=== PATIENT | male | born 1980 | race Caucasian/White ===

== ENCOUNTER 2018-09-12 19:23 | Emergency (ER) | payer BC, SELFPAY ==
[2018-09-12 19:25] VITALS: BP 149/91; PULSE 82; RESP 18; TEMP 36.8; O2SAT 97
[2018-09-12 19:30] VITALS: RESP 18
[2018-09-12 20:00] VITALS: BP 125/86; PULSE 85; RESP 18; O2SAT 96
[2018-09-12 20:08] LABS: Abs Immature Grans 0.04 k/cumm (0.0-0.09); Absolute Basophil Count 0.06 k/cumm (0.0-0.2); Absolute Eosinophil Count 0.04 k/cumm (0.0-0.7); Absolute Lymphocyte Count 1.59 k/cumm (1.2-3.4); Absolute Monocyte Count 0.64 k/cumm (0.11-0.7); Absolute Neutrophil Count 4.55 k/cumm (1.2-6.7); Basophils % 0.9; Eosinophils % 0.6; Immature Grans % 0.6; Mean Corp. HGB Concentration 34.8 g/dL (32.0-36.0); Mean Corpuscular Hemoglobin 32.1 pg (27.0-33.0); Mean Corpuscular Volume 92.2 fL (80-95); Mean Platelet Volume 11.3 fL (8.0-11.0); Monocytes % 9.2; Neutrophils % 65.7; Platelet Count 252 x1000/uL (130-400); RBC 4.99 m/cumm (4.50-6.00); RBC Distribution Width 12.1 % (11.8-14.1); White Blood Cell Count 6.92 k/cumm (4.4-10.8)
[2018-09-12 20:20] LABS: INR 1.1 (0.9-1.1); Prothrombin Time 10.5 sec (9.3-11.0)
[2018-09-12 20:28] LABS: ALT 25 U/L (12-78); AST 15 U/L (15-37); Albumin 3.8 g/dL (3.4-5.0); Alkaline Phosphatase 83 U/L (46-116); Anion Gap 11.1 mmol/L (3-11); BUN 15 mg/dL (7-18); Bilirubin, Total 0.3 mg/dL (0.2-1.0); CO2 23.9 mmol/L (21.0-32.0); CREATININE 0.97 mg/dL (0.70-1.30); Calcium 8.9 mg/dL (8.5-10.1); Chloride 102 mmol/L (98-107); Glucose 133 mg/dL (70-100); NT-proBNP 27 pg/mL; Potassium 3.5 mmol/L (3.5-5.1); Sodium 137 mmol/L (136-145); Total Protein 7.7 g/dL (6.4-8.2)
[2018-09-12 20:29] LABS: Troponin I < 0.02 ng/mL (0.00-0.06)
--- NOTE | 2018-09-12 20:50 | W.ED.GENAD ---
Discharge Plan Disposition Patient Disposition: HOME Condition: Stable Discharge Details Chief Complaint: Chest Pain Clinical Impression: Chest pain, SOB (shortness of breath) Primary Care Provider: Paulie Mcclain ED Provider: Darell Ac Home Meds and New Rx's Prescriptions: No Action No Known Home Meds RF: 0 Discharge Instructions Instructions: Chest Pain (ED), Dyspnea (ED) Additional Instructions: You will be contacted for your outpatient stress test. We have recommended to the stress testing facility that your test be performed on Saturday. Please follow-up promptly with your primary care provider at your scheduled appointment on Saturday. If you notice any worsening of your symptoms, or any new symptoms such as vomiting, diarrhea, fever, chills, shortness of breath, chest pain, numbness, weakness, or fainting , please return immediately to the emergency department for reevaluation. Please follow up with your primary care provider as soon as possible for reassessment and reevaluation. As always, it was a pleasure participating in your medical care today. Referrals: Paulie Mcclain [Primary Care Provider] - Medical Decision Making This is a pleasant 38-year-old male with a past medical history of epilepsy, for which she takes no medications, as well as a vague history of a potential reduced ejection fraction, and valvular disease for which he does not know the specifics, nor can we find any records at [facility]. These cardiac issues were years ago, and he has had no follow-up since then, nor any problems. Currently he presents today with atypical symptoms of chest heaviness diaphoresis, fatigue and shortness of breath that started today with a mild associated nonproductive cough. He has no pulmonary embolism risk factors. He is asymptomatic now. There does seem to be a slight exertional component. No pleuritic chest pain. Signs and symptoms are notably atypical for ACS, as well as PE, however both of these are certainly in the differential. Viral upper respiratory infection, pericarditis, is also on the differential. We will perform a cardiac work-up, get chest imaging, and reassess. At this time EKG is relatively benign, there is minimal less than 1 mm J-point elevation but no other significant abnormalities. 11:13 PM The patient's symptoms are still completely resolved. Laboratory work-up demonstrates normal white count, negative d-dimer, normal electrolytes, normal renal function, normal proBNP, negative serial troponins, normal thyroid testing. Unremarkable chest x-ray per virtual radiology. Serial EKGs are unchanged and equivalent. No evidence of STEMI. There are less than 1 mm elevations with notable J-point components. With the patient's complete absence of current symptoms, otherwise relatively benign work-up, I did discuss per disposition. Because of his atypical history I did discuss recommendation for inpatient observation, serial troponins and stress testing. Clinically at this time the patient shows no evidence of signs or symptoms clinically consistent with aortic dissection, STEMI, severe pneumonia, pneumothorax, or acute life-threatening chest pathology. Discussing this, I did discuss the risks with going home, however if you would go home I discussed my requirements of outpatient stress testing and prompt follow-up. Understanding the risks and benefits, through shared decision making process, being of sound mind and notable decision-making capacity the patient has chosen to go home. He clearly understands reasons for which to immediately return as based on her multiple conversations here tonight. We will have him have an outpatient stress test early next week, preferably Saturday. He does have follow-up already scheduled with his PCP on Saturday. We discussed red flags for which to return the importance of close follow-up. I have extensively reviewed the treatment plan and discharge instructions with the patient and their family. I have addressed all patient concerns at this time. The patient and family was made aware of what symptoms to monitor for that would warrant a return to the emergency department. Discussed the plan with the patient and family, they demonstrate verbal understanding and agreement with our assessment and plan at this time. EKG 19: 37 Rate 85, intervals normal, sinus rhythm, inverted T wave in V1, no Q waves. Less than [address] J-point elevation in V2 through V5. No reciprocal ST depressions. No evidence of STEMI. No tombs stoning of ST segments. EKG 22: 32 Rate 75, sinus rhythm, intervals normal, inverted T wave in V1. No Q waves, less than [address] j point elevation in V3 through V5 with a notable J-point component. Unchanged from prior EKG CLINICAL HISTORY: 38 years old, male; Signs and symptoms; Shortness of breath; Patient HX: SOB, chest heaviness TECHNIQUE: Imaging protocol: XR of the chest, 2 views. COMPARISON: No relevant prior studies available. FINDINGS: Lungs: Lungs are adequately inflated and symmetric. No focal consolidation or pulmonary edema. Pleural space: No pleural effusion. No pneumothorax. Heart/Mediastinum: Cardiomediastinal contours within normal limits. Bones/joints: No acute osseous finding. Soft tissues: No focal soft tissue abnormailty. IMPRESSION: No acute findings. Dictated and Authenticated by: Salo Hardy MD. Ordering:MAURA Lozoya MD HPI General Date/Time Provider Initiated Documentation: 09/12/18 19:56. HPI Narrative: This is a 38-year-old male with past medical history of cardiac valve abnormalities, for which she is not aware of the specifics and has no records of that here, previous tobacco abuse for which she quit a few years ago, questionable decreased ejection fraction from which she states was assessed years ago but he takes no medications for. He also has epilepsy which he takes no medications for. He presents today with complaint of shortness of breath fatigue and chest heaviness. 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 During this activity he would feel like there was a fair bit of bricks on his chest in regards to heaviness. He also had episodes where he would get notably sweaty and feel increasingly fatigued. He also had some mild left arm tingling. Currently he states that he is completely asymptomatic. He denies any first-degree relative with a family history of cardiac ischemic disease. He denies any previous cardiac ischemia otherwise. He denies any history of blood clots. Denies PE risk factors such as recent long car rides, immobilization, recent surgery, prior history of DVT or PE, family history of PE or DVT, morbid obesity, exogenous estrogen and smoking, hemoptysis, history of cancer. He denies any fevers or chills. Related Data Home Medications Medication Instructions Recorded Confirmed Unknown [No Known Home Meds] 10/26/14 09/12/18 Allergies Allergy/AdvReac Type Severity Reaction Status Date / Time Penicillins Allergy Severe Anaphylaxsi Unverified 09/12/18 19:30 s Sulfa (Sulfonamide Allergy Intermediate Skin Rash Unverified 09/12/18 19:30 Antibiotics) General Stated Complaint: Chest Pain COSTA: 3 Review of Systems Review of Systems All systems reviewed & are unremarkable except as noted in HPI and below PFSH Social History Smoking/Tobacco Use Status: Former Tobacco Use Alcohol Intake: current Alcohol Intake frequency: a few times a month Alcohol type: beer Drug use: Never Do you feel safe at home: Yes Do you feel safe in your relationship?: Yes Exam Narrative Exam Narrative: 1.Const: Well-nourished, Well-developed, appearing stated age 2.Eyes: PERRL, no conjunctival injection, and symmetrical lids. 3.ENT: Atraumatic external nose and ears. Moist MM. Neck: Symmetric, trachea midline, No thyromegaly. 4.CVS: +S1/S2, mild murmur vascular. Peripheral pulses 2+ and equal in all extremities. Brisk capillary refill in all extremities. Pulses equal bilaterally. 5.RESP: Unlabored respiratory effort. Clear to auscultation bilaterally. No wheezes rales or rhonchi 6.GI: Soft, Nontender/Nondistended, No hepatosplenomegaly. No guarding or rebound. 7.MSK: Normocephalic/Atraumatic, Extremities w/o deformity or ttp No cyanosis or clubbing, Normal movement of all extremities. No pitting edema in the lower extremities. 8.Skin: Warm, Dry. No rashes or lesions. 9.Neuro: management aide II-XII grossly intact. Sensation grossly intact, no focal neurologic deficits. 10.Psych: (AAO) x3. Appropriate mood and affect Course Vital Signs Temperature 36.8 C 09/12/18 19:25 Pulse 82 09/12/18 19:25 Respiratory Rate 18 09/12/18 19:25 Blood Pressure 149/91 H 09/12/18 19:25 Pulse Oximetry 97 09/12/18 19:25 Temperature 36.8 C 09/12/18 19:25 Temperature Source Skin 09/12/18 19:25 Pulse 82 09/12/18 19:25 Respiratory Rate 18 09/12/18 19:30 Respiratory Effort Non-Labored 09/12/18 19:30 Respiratory Depth Normal 09/12/18 19:30 Respiratory Pattern Normal 09/12/18 19:30 Blood Pressure 149/91 H 09/12/18 19:25 Blood Pressure Position Sitting 09/12/18 19:25 Pulse Oximetry 97 09/12/18 19:25 Oxygen Delivery Method Room Air 09/12/18 19:25 Oxygen Flow Rate 0 09/12/18 19:25 Pain Level 1 09/12/18 19:30 Lab/Test Results Lab/Test Results: Laboratory Tests Range/Units 09/12/18 09/12/18 09/12/18 19:33 19:33 19:33 WBC (4.4-10.8) k/cumm 6.92 RBC (4.50-6.00) m/cumm 4.99 Hgb (13.5-17.5) g/dL 16.0 Hct (40.0-50.0) % 46.0 MCV (80-95) fL 92.2 MCH (27.0-33.0) pg 32.1 MCHC (32.0-36.0) g/dL 34.8 RDW (11.8-14.1) % 12.1 Plt Count (130-400) x1000/uL 252 MPV (8.0-11.0) fL 11.3 H Immature Gran % 0.6 Neutrophils % 65.7 Lymphocytes % 23.0 Monocytes % 9.2 Eosinophils % 0.6 Basophils % 0.9 Absolute Neutrophils (1.2-6.7) k/cumm 4.55 Absolute Lymphocytes (1.2-3.4) k/cumm 1.59 Absolute Monocytes (0.11-0.7) k/cumm 0.64 Absolute Eosinophils (0.0-0.7) k/cumm 0.04 Absolute Basophils (0.0-0.2) k/cumm 0.06 PT (9.3-11.0) sec 10.5 INR (0.9-1.1) 1.1 APTT (21.0-31.4) sec 29.0 Sodium (136-145) mmol/L 137 Potassium (3.5-5.1) mmol/L 3.5 Chloride (98-107) mmol/L 102 Carbon Dioxide (21.0-32.0) mmol/L 23.9 Anion Gap (3-11) mmol/L 11.1 H BUN (7-18) mg/dL 15 Creatinine (0.70-1.30) mg/dL 0.97 Estimated GFR/1.73 m2 (mL/min/1.73m2) >= 60.00 Glucose (70-100) mg/dL 133 H Calcium (8.5-10.1) mg/dL 8.9 Total Bilirubin (0.2-1.0) mg/dL 0.3 AST (15-37) U/L 15 ALT (12-78) U/L 25 Alkaline Phosphatase (46-116) U/L 83 Troponin I (0.00-0.06) ng/mL < 0.02 NT-Pro-B Natriuret Pep ( - 299) pg/mL 27 Total Protein (6.4-8.2) g/dL 7.7 Albumin (3.4-5.0) g/dL 3.8
[2018-09-12 20:55] LABS: TSH (W/Ref FT4) 2.33 uIU/mL (0.358-3.74)
--- NOTE | 2018-09-12 20:57 | ED.GENADUL_ITS ---
Discharge Plan Disposition Patient Disposition: HOME Condition: Stable Discharge Details Chief Complaint: Chest Pain Clinical Impression: Chest pain, SOB (shortness of breath) Primary Care Provider: Paulie Mcclain ED Provider: Darell Ac Home Meds and New Rx's Prescriptions: No Action No Known Home Meds RF: 0 Discharge Instructions Instructions: Chest Pain (ED), Dyspnea (ED) Additional Instructions: You will be contacted for your outpatient stress test. We have recommended to the stress testing facility that your test be performed on Saturday. Please foll ow-up promptly with your primary care provider at your scheduled appointment on Saturday. If you notice any worsening of your symptoms, or any new symptoms such as vomiting, diarrhea, fever, chills, shortness of breath, chest pain, numbness, weakness, or fainting , please return immediately to the emergency department for reevaluation. Please follow up with your primary care provider as soon as po ssible for reassessment and reevaluation. As always, it was a pleasure participating in your medical care today. Referrals: Paulie Mcclain [Primary Care Provider] - Medical Decision Making This is a pleasant 38-year-old male with a past medical history of epilepsy, for which she takes no medications, as well as a vague history of a potential reduced ejection fraction, and valvular disease for which he does not know the specifics, nor can we find any records at [facility]. These cardiac issues were years ago, and he has had no follow-up since then, nor any problems. Currently he presents today with atypical symptoms of chest heaviness diaphoresis, fatigue and shortness of breath that started today with a mild associated nonproductive cough. He has no pulmonary embolism risk factors. He is asymptomatic now. There does seem to be a slight exertional component. No pleuritic chest pain. Signs and symptoms are notably atypical for ACS, as well as PE, however both of these are certainly in the differential. Viral upper respiratory infection, pericarditis, is also on the differential. We will perform a cardiac work-up, get chest imaging, and reassess. At this time EKG is relatively benign, there is minimal less than 1 mm J-point elevation but no other significant abnormalities. 11:13 PM The patient's symptoms are still completely resolved. Laboratory work-up demonstrates normal white count, negative d-dimer, normal electrolytes, normal renal function, normal proBNP, negative serial troponins, normal thyroid testing. Unremarkable chest x-ray per virtual radiology. Serial EKGs are unchanged and equivalent. No evidence of STEMI. There are less than 1 mm elevations with notable J-point components. With the patient's complete absence of current symptoms, otherwise relatively benign work-up, I did discuss per disposition. Because of his atypical history I did discuss recommendation for inpatient observation, serial troponins and stress testing. Clinically at this time the patient shows no evidence of signs or symptoms clinically consistent with aortic dissection, STEMI, severe pneumonia, pneumothorax, or acute life- threatening chest pathology. Discussing this, I did discuss the risks with going home, however if you would go home I discussed my requirements of outpatient stress testing and prompt follow-up. Understanding the risks and benefits, through shared decision making process, being of sound mind and notable decision-making capacity the patient has chosen to go home. He clearly understands reasons for which to immediately return as based on her multiple conversations here tonight. We will have him have an outpatient stress test early next week, preferably Saturday. He does have follow-up already scheduled with his PCP on Saturday. We discussed red flags for which to return the importance of close follow-up. I have extensively reviewed the treatment plan and discharge instructions with the patient and their family. I have addressed all patient concerns at this time. The patient and family was made aware of what symptoms to monitor for that would warrant a return to the emergency department. Discussed the plan with the patient and family, they demonstrate verbal understanding and agreement with our assessment and plan at this time. EKG 19: 37 Rate 85, intervals normal, sinus rhythm, inverted T wave in V1, no Q waves. Less than [address] J-point elevation in V2 through V5. No reciprocal ST depressions. No evidence of STEMI. No tombs stoning of ST segments. EKG 22: 32 Rate 75, sinus rhythm, intervals normal, inverted T wave in V1. No Q waves, less than [address] j point elevation in V3 through V5 with a notable J-point component. Unchanged from prior EKG CLINICAL HISTORY: 38 years old, male; Signs and symptoms; Shortness of breath; Patient HX: SOB, chest heaviness TECHNIQUE: Imaging protocol: XR of the chest, 2 views. COMPARISON: No relevant prior studies available. FINDINGS: Lungs: Lungs are adequately inflated and symmetric. No focal consolidation or pulmonary edema. Pleural space: No pleural effusion. No pneumothorax. Heart/Mediastinum: Cardiomediastinal contours within normal limits. Bones/joints: No acute osseous finding. Soft tissues: No focal soft tissue abnormailty. IMPRESSION: No acute findings. Dictated and Authenticated by: Salo Hardy MD. Ordering:MAURA Lozoya MD HPI General Date/Time Provider Initiated Documentation: 09/12/18 19:56 . HPI Narrative: This is a 38-year-old male with past medical history of cardiac valve abnormalities, for which she is not aware of the specifics and has no records of that here, previous tobacco abuse for which she quit a few years ago, questionable decreased ejection fraction from which she states was assessed year s ago but he takes no medications for. He also has epilepsy which he takes no medications for. He presents today with complaint of shortness of breath fatigue and chest heaviness. 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 During this activity he would feel like there was a fair bit of bricks on his chest in regards to heaviness. He also had episodes where he would get notably sweaty and feel increasingly fatigued. He also had some mild left arm tingling. Currently he states that he is completely asymptomatic. He denies any first- degree relative with a family history of cardiac ischemic disease. He denies any previous cardiac ischemia otherwise. He denies any history of blood clots. Denies PE risk factors such as recent long car rides, immobilization, recent surgery, prior history of DVT or PE, family history of PE or DVT, morbid obesity, exogenous estrogen and smoking, hemoptysis, history of cancer. He denies any fevers or chills. Related Data Home Medications Medication Instructions Recorded Confirmed Unknown [No Known Home Meds] 10/26/14 09/12/18 Allergies Allergy/AdvReac Type Severity Reaction Status Date / Time Penicillins Allergy Severe Anaphylaxsi Unverified 09/12/18 19:30 s Sulfa (Sulfonamide Allergy Intermediate Skin Rash Unverified 09/12/18 19:30 Antibiotics) General Stated Complaint: Chest Pain COSTA: 3 Review of Systems Review of Systems All systems reviewed & are unremarkable except as noted in HPI and below PFSH Social History Smoking/Tobacco Use Status: Former Tobacco Use Alcohol Intake: current Alcohol Intake frequency: a few times a month Alcohol type: beer Drug use: Never Do you feel safe at home: Yes Do you feel safe in your relationship?: Yes Exam Narrative Exam Narrative: 1.Const: Well-nourished, Well-developed, appearing stated age 2.Eyes: PERRL, no conjunctival injection, and symmetrical lids. 3.ENT: Atraumatic external nose and ears. Moist MM. Neck: Symmetric, trachea midline, No thyromegaly. 4.CVS: +S1/S2, mild murmur vascular. Peripheral pulses 2+ and equal in all extremities. Brisk capillary refill in all extremities. Pulses equal bilaterally. 5.RESP: Unlabored respiratory effort. Clear to auscultation bilaterally. No wheezes rales or rhonchi 6.GI: Soft, Nontender/Nondistended, No hepatosplenomegaly. No guarding or rebound. 7.MSK: Normocephalic/Atraumatic, Extremities w/o deformity or ttp No cyanosis or clubbing, Normal movement of all extremities. No pitting edema in the lower extremities. 8.Skin: Warm, Dry. No rashes or lesions. 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 Sensation grossly intact, no focal neurologic deficits. 10.Psych: (AAO) x3. Appropriate mood and affect Course Vital Signs Temperature 36.8 C 09/12/18 19:25 Pulse 82 09/12/18 19:25 Respiratory Rate 18 09/12/18 19:25 Blood Pressure 149/91 H 09/12/18 19:25 Pulse Oximetry 97 09/12/18 19:25 Temperature 36.8 C 09/12/18 19:25 Temperature Source Skin 09/12/18 19:25 Pulse 82 09/12/18 19:25 Respiratory Rate 18 09/12/18 19:30 Respiratory Effort Non-Labored 09/12/18 19:30 Respiratory Depth Normal 09/12/18 19:30 Respiratory Pattern Normal 09/12/18 19:30 Blood Pressure 149/91 H 09/12/18 19:25 Blood Pressure Position Sitting 09/12/18 19:25 Pulse Oximetry 97 09/12/18 19:25 Oxygen Delivery Method Room Air 06/07/19 19:25 Oxygen Flow Rate 0 09/12/18 19:25 Pain Level 1 09/12/18 19:30 Lab/Test Results Lab/Test Results: Laboratory Tests Range/Units 09/12/18 09/12/18 09/12/18 19:33 19:33 19:33 WBC (4.4-10.8) k/cumm 6.92 RBC (4.50-6.00) m/cumm 4.99 Hgb (13.5-17.5) g/dL 16.0 Hct (40.0-50.0) % 46.0 MCV (80-95) fL 92.2 MCH (27.0-33.0) pg 32.1 MCHC (32.0-36.0) g/dL 34.8 RDW (11.8-14.1) % 12.1 Plt Count (130-400) x1000/uL 252 MPV (8.0-11.0) fL 11.3 H Immature Gran % 0.6 Neutrophils % 65.7 Lymphocytes % 23.0 Monocytes % 9.2 Eosinophils % 0.6 Basophils % 0.9 Absolute Neutrophils (1.2-6.7) k/cumm 4.55 Absolute Lymphocytes (1.2-3.4) k/cumm 1.59 Absolute Monocytes (0.11-0.7) k/cumm 0.64 Absolute Eosinophils (0.0-0.7) k/cumm 0.04 Absolute Basophils (0.0-0.2) k/cumm 0.06 PT (9.3-11.0) sec 10.5 INR (0.9-1.1) 1.1 APTT (21.0-31.4) sec 29.0 Sodium (136-145) mmol/L 137 Potassium (3.5-5.1) mmol/L 3.5 Chloride (98-107) mmol/L 102 Carbon Dioxide (21.0-32.0) mmol/L 23.9 Anion Gap (3-11) mmol/L 11.1 H BUN (7-18) mg/dL 15 Creatinine (0.70-1.30) mg/dL 0.97 Estimated GFR/1.73 m2 (mL/min/1.73m2) >= 60.00 Glucose (70-100) mg/dL 133 H Calcium (8.5-10.1) mg/dL 8.9 Total Bilirubin (0.2-1.0) mg/dL 0.3 AST (15-37) U/L 15 ALT (12-78) U/L 25 Alkaline Phosphatase (46-116) U/L 83 Troponin I (0.00-0.06) ng/mL < 0.02 NT-Pro-B Natriuret Pep ( - 299) pg/mL 27 Total Protein (6.4-8.2) g/dL 7.7 Albumin (3.4-5.0) g/dL 3.8
[2018-09-12 21:00] VITALS: BP 122/74; PULSE 83; RESP 18; O2SAT 95
[2018-09-12 21:03] LABS: D-Dimer 228 ng/mlFEU (<500)
--- NOTE | 2018-09-12 21:18 | DI.RAD_ITS ---
SYMPTOM/DIAGNOSIS: SOB, CHEST HEAVINESS PA AND LATERAL CHEST: No priors. The heart is normal in size. The lungs are clear. The mediastinal structures and pleura appear intact. CONCLUSION: Normal chest.
--- NOTE | 2018-09-12 21:37 | DI.VRAD_ITS ---
EXAM: XR Chest, 2 Views EXAM DATE/TIME: 09/12/2018 9:06 PM CLINICAL HISTORY: 38 years old, male; Signs and symptoms; Shortness of breath; Patient HX: SOB, chest heaviness TECHNIQUE: Imaging protocol: XR of the chest, 2 views. COMPARISON: No relevant prior studies available. FINDINGS: Lungs: Lungs are adequately inflated and symmetric. No focal consolidation or pulmonary edema. Pleural space: No pleural effusion. No pneumothorax. Heart/Mediastinum: Cardiomediastinal contours within normal limits. Bones/joints: No acute osseous finding. Soft tissues: No focal soft tissue abnormailty. IMPRESSION: No acute findings. Dictated and Authenticated by: Salo Hardy MD. Ordering:MAURA Lozoya MD
[2018-09-12 22:00] VITALS: BP 129/84; PULSE 79; RESP 17; O2SAT 95
[2018-09-12 22:57] LABS: Troponin I < 0.02 ng/mL (0.00-0.06)
[2018-09-12 23:00] VITALS: BP 126/83; PULSE 79; RESP 16; TEMP 36.8; O2SAT 96
== END 2018-09-12 23:22 | disposition home or self-care (01) ==
PROVIDERS: Emergency Provider Student in an Organized Health Care Education/Training Program; PCP Internal Medicine
DX: R07.9 Chest pain, unspecified (principal); R06.02 Shortness of breath
CPT/HCPCS: 36415; 80053; 93005; 99285; 71046; 83880; 84443; 84484; 85025; 85379; 85610; 85730; 93010

== ENCOUNTER 2020-07-27 10:22 | Outpatient (CLI) | payer BC, SELFPAY ==
[2020-07-28 05:15] LABS: COVID-19 RT-PCR UVMMC Result Positive (Negative)
== END 2020-07-27 10:23 | disposition home or self-care (01) ==
PROVIDERS: PCP Internal Medicine; Visit Provider Physician Assistant
DX: Z20.822 Contact with and (suspected) exposure to COVID-19 (principal)
CPT/HCPCS: U0003

== ENCOUNTER 2020-07-29 09:21 | Emergency (ER) | payer BC, SELFPAY ==
[2020-07-29] VITALS (25 sets, daily range): BP systolic 114–168; BP diastolic 67–148; PULSE 75–92; RESP 10–23; TEMP 37; O2SAT 94–98
--- NOTE | 2020-07-29 09:15 | DI.RAD_ITS ---
EXAM: XR PORTABLE CHEST AP CLINICAL HISTORY: Covid +, SOB TECHNIQUE: 2D digital imaging was performed. COMPARISON: No exams were available for comparison FINDINGS: LUNGS: Clear. No pleural abnormality seen. HEART: Normal. MEDIASTINUM: Normal. BONES: Unremarkable. IMPRESSION: No acute pulmonary findings. DATA REPOSITORY: RADIATION DOSE DELIVERED:
--- NOTE | 2020-07-29 09:24 | W.ED.GENAD ---
Discharge Plan Disposition Patient Disposition: HOME Condition: Stable Discharge Details Clinical Impression: COVID-19 Primary Care Provider: Paulie Mcclain ED Provider: Dennis Viera Home Meds and New Rx's Prescriptions: Continued multivitamin Tablet 1 tab PO DAILY RF: 0 Discharge Instructions Instructions: COVID-19 (Coronavirus Disease 2019) (ED) Additional Instructions: You have been recently diagnosed with Covid. Your laboratory values and chest x-ray did not reveal any obvious emergent process. As we discussed, I am providing you with a pulse oximeter to use at home, if your oxygen level consistently is below 90 I do recommend returning to the ER. Please watch for new or worsening symptoms and return to the ER for any concerns. Rest, plenty of fluids, [id number] medications as directed for symptomatic control. I do recommend contacting your primary care provider by phone, they will likely not want you to go directly to their office but can follow you as an outpatient via telemedicine. Continue to quarantine as Covid is contagious and you remain symptomatic. Discharge Data Discharge Date/Time-TO BE ENTERED AT DEPARTURE: 07/29/20 11:51 Medical Decision Making This is a 40-year-old gentleman, diagnosed with Covid on the , reports primarily dry cough, worsening shortness of breath with activity. Clinically he appears well, nontoxic, afebrile, lungs clear to auscultation, pulse in the 80s, O2 sat 96% on room air. Denies any chest pain whatsoever. Extremely low suspicion for ACS, pneumonia, PE, CHF, etc. Likely experiencing Covid symptoms. Patient reports that after he was initially diagnosed with Covid he was not a candidate for monoclonal antibodies. Discussed options, will obtain CBC, CMP, D-dimer although again low suspicion for PE, and chest x-ray. I see no indication to obtain a troponin or BNP. Work-up in the ER unremarkable, no indication to pursue CTA. Educated patient on Covid, given a home pulse oximeter. Patient has no additional questions or concerns, comfortable discharge, remains asymptomatic while under my care. We discussed that Covid is highly contagious and he should continue to quarantine until he is asymptomatic Medical Records Medical records reviewed: Yes I reviewed the patient's medical records. Imaging Data Radiologic Study: Attestation: I personally reviewed and interpreted this imaging study as follows: Imaging: X-Ray Radiologist's impression: Chest x-ray neg Lab Data Lab results reviewed: Yes I reviewed the patient's lab results. Lab results narrative: Laboratory Tests Range/Units 07/29/20 07/29/20 07/29/20 09:45 09:45 09:45 WBC (4.4-10.8) 10^3/uL 5.89 RBC (4.36-5.78) 10^6/uL 5.29 Hgb (13.5-17.5) g/dL 17.0 Hct (40.0-50.0) % 49.2 MCV (80-95) fL 93.0 MCH (27.0-33.0) pg 32.1 MCHC (32.0-36.0) % 34.6 RDW (11.8-14.1) % 11.3 L Plt Count (130-400) 10^3/uL 265 MPV (8.0-11.0) fL 10.7 Immature Gran % 0.5 Neutrophils % 67.9 Lymphocytes % 22.2 Monocytes % 7.5 Eosinophils % 1.2 Basophils % 0.7 Nucleated RBC % % 0 Absolute Neutrophils (1.2-6.7) 10^3/uL 4.00 Absolute Lymphocytes (1.2-3.4) 10^3/uL 1.31 Absolute Monocytes (0.1-0.8) 10^3/uL 0.44 Absolute Eosinophils (0.0-0.7) 10^3/uL 0.07 Absolute Basophils (0.0-0.2) 10^3/uL 0.04 D-Dimer (<500) ng/mlFEU 266 Sodium (136-145) mmol/L 142 Potassium (3.5-5.1) mmol/L 3.6 Chloride (98-107) mmol/L 106 Carbon Dioxide (21.0-32.0) mmol/L 28.4 Anion Gap (3-11) mmol/L 7.6 BUN (7-18) mg/dL 19 H Creatinine (0.70-1.30) mg/dL 0.9 Estimated GFR/1.73 m2 (mL/min/1.73m2) >= 60.00 Glucose (74-106) mg/dL 116 H Calcium (8.5-10.1) mg/dL 8.8 Total Bilirubin (0.2-1.0) mg/dL 0.6 AST (15-37) U/L 10 L ALT (16-63) U/L 27 Alkaline Phosphatase (46-116) U/L 83 Total Protein (6.4-8.2) g/dL 7.9 Albumin (3.4-5.0) g/dL 3.9 ECG Data Attestation: I personally reviewed and interpreted this ECG (s) as follows: Interpretation: Please see official report by Dr. Andrea. Sinus rhythm, ventricular of 75. No STEMI HPI General Mode of arrival: ambulatory. Date/Time Provider Initiated Documentation: 07/29/20 09:22. Limitations to Documentation: no limitations. Information obtained by: patient. HPI Narrative: This is a 40-year-old gentleman, tested positive for Covid on 07-27-20, former smoker, denies other significant past medical history. He reports primarily a dry cough for the past week or so, occasionally yellow phlegm. 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 Reports that this is rather atypical. Denies fever, chest pain, back pain, abdominal pain, nausea, vomiting, pain or swelling in his legs, change in bowel or bladder function. Patient reports that his also has Covid but her shortness of breath is mild to severe. He has not been checking his home oxygen levels. He is primarily concerned that he may have developed a secondary pneumonia. He contacted his local clinic and they directed him to the ER for further evaluation. He reports that at rest he is asymptomatic, currently lying in the hospital stretcher is asymptomatic. Related Data Home Medications Medication Instructions Recorded Confirmed multivitamin 1 tab PO DAILY 07/29/20 07/29/20 Allergies Allergy/AdvReac Type Severity Reaction Status Date / Time Penicillins Allergy Severe Anaphylaxsi Unverified 07/29/20 09:44 s Sulfa (Sulfonamide Allergy Intermediate Skin Rash Unverified 07/29/20 09:44 Antibiotics) General COSTA: 3 Review of Systems Constitutional Constitutional: Denies fatigue, Denies fever(s) and Denies headache(s) ENT Ears, Nose, Mouth, and Throat: Denies headache(s) and Denies sore throat Cardiovascular Cardiovascular: Denies chest pain and Reports dyspnea Respiratory Respiratory: Reports cough and Reports dyspnea Gastrointestinal Gastrointestinal: Denies abdominal pain, Denies nausea and Denies vomiting Genitourinary Genitourinary: Denies dysuria Musculoskeletal Musculoskeletal: Denies back pain and Denies myalgias Integumentary/Breasts Skin/Breast: Denies rash Neurologic Neurologic: Denies headache(s) Endocrine Endocrine: Denies fatigue [facility] Social History Smoking/Tobacco Use Status: Former Tobacco Use Quit Date: 04/08/15 Smoking risk assessment performed?: Yes Alcohol Intake: current Alcohol Intake frequency: 0-2 drinks per day Alcohol type: beer Drug use: Never Substance use type: does not use Do you feel safe at home: Yes Do you feel safe in your relationship?: Yes Exam Const General: cooperative, healthy appearing, comfortable and no acute distress Orientation: alert, awake and oriented x3 HENMT Head: normal to inspection, normocephalic and atraumatic Face and sinus: normal facial exam Mouth: moist mucous membranes Throat: posterior oropharynx normal Eyes General: appearance normal, both eyes and all related structures Conjunctivae: conjunctivae normal Neck Neck: normal visual inspection, full ROM, no lymphadenopathy, no meningeal signs, trachea midline and supple Resp Effort & Inspection: normal respiratory effort and able to speak in complete sentences Auscultation: clear to auscultation bilaterally Cardio Rate: regular rate Rhythm: regular rhythm GI Palpation: soft and nontender Back/Spine/Pelvis Back: No back tenderness Skin General skin exam: no rashes or lesions noted Neuro General: patient alert, patient awake, moves all extremities and no focal motor deficits Cognition: normal cognition Speech: speech normal Gait: normal gait Motor: muscle tone normal throughout Sensory Exam: no sensory deficits noted Extrem General: normal to inspection, full ROM, capillary refill normal, no pedal edema and no calf tenderness Psych Appearance: grossly normal Mental Status: mental status grossly normal
--- NOTE | 2020-07-29 09:30 | RT.EKG_ITS ---
APPROVED REPORT Exam: Resting ECG Patient Location: E HR:75 bpm ECG Measurements Heart Rate 75 AXIS OR 180 P 33 QRSd 92 QRS 39 QT 348 T 47 QTc 389 Conclusion Sinus rhythm...normal P axis, V-rate 60- 99 I have reviewed and interpreted ECG and agree with software generated interpretation.
[2020-07-29 10:46] LABS: Abs Immature Grans 0.03 10^3/uL (0.0-0.06); Absolute Basophil Count 0.04 10^3/uL (0.0-0.2); Absolute Eosinophil Count 0.07 10^3/uL (0.0-0.7); Absolute Lymphocyte Count 1.31 10^3/uL (1.2-3.4); Absolute Monocyte Count 0.44 10^3/uL (0.1-0.8); Basophils % 0.7; Eosinophils % 1.2; HCT 49.2 % (40.0-50.0); Immature Grans % 0.5; Lymphocytes % 22.2; MCH 32.1 pg (27.0-33.0); MCHC 34.6 % (32.0-36.0); MPV 10.7 fL (8.0-11.0); Monocytes % 7.5; Neutrophils % 67.9; Nucleated RBC 0 %; Platelet Count 265 10^3/uL (130-400); RBC 5.29 10^6/uL (4.36-5.78); RDW 11.3 % (11.8-14.1); RDW-SD 38.5 fL; WBC 5.89 10^3/uL (4.4-10.8)
[2020-07-29 11:08] LABS: ALT 27 U/L (16-63); AST 10 U/L (15-37); Albumin 3.9 g/dL (3.4-5.0); Alkaline Phosphatase 83 U/L (46-116); Anion Gap 7.6 mmol/L (3-11); BUN 19 mg/dL (7-18); Bilirubin, Total 0.6 mg/dL (0.2-1.0); CO2 28.4 mmol/L (21.0-32.0); CREATININE 0.9 mg/dL (0.70-1.30); Calcium 8.8 mg/dL (8.5-10.1); Chloride 106 mmol/L (98-107); Glucose 116 mg/dL (74-106); Potassium 3.6 mmol/L (3.5-5.1); Sodium 142 mmol/L (136-145); Total Protein 7.9 g/dL (6.4-8.2)
[2020-07-29 11:16] LABS: D-Dimer 266 ng/mlFEU (<500)
== END 2020-07-29 11:51 | disposition home or self-care (01) ==
PROVIDERS: Emergency Provider Physician Assistant; PCP Internal Medicine
DX: U07.1 COVID-19 (principal)
CPT/HCPCS: 80053; 93005; 99284; 71045; 85025; 85379; 93010; 99283

== ENCOUNTER 2020-10-29 20:15 | Emergency (ER) | payer BC, SELFPAY ==
[2020-10-29 20:24] VITALS: BP 136/93; PULSE 94; RESP 18; TEMP 36.7; O2SAT 97
--- NOTE | 2020-10-29 20:29 | W.ED.GENAD ---
Discharge Plan Disposition Patient Disposition: HOME Condition: Good Discharge Details Clinical Impression: Burn of hand, left, second degree Primary Care Provider: Paulie Mcclain ED Provider: Paulie Rodriguez Home Meds and New Rx's Prescriptions: No Action multivitamin Tablet 1 tab PO DAILY RF: 0 Discharge Instructions Instructions: Second-Degree Burn (ED), Opioid Safety (ED) Additional Instructions: Leave our dressing on for 24 hours. May remove tomorrow night and clean the area gently. Reapply bacitracin ointment and keep covered for another few days. Do not pop the blisters but if they do drain on their own you may remove the skin. Follow-up with primary care next week for recheck. Return to ED for increasing pain, swelling, redness, fever. Use ibuprofen or acetaminophen for pain but if necessary may take a hydrocodone/acetaminophen for severe pain. Referrals: Paulie Mcclain [Primary Care Provider] - Discharge Data Discharge Date/Time-TO BE ENTERED AT DEPARTURE: 10/29/20 21:00 Medical Decision Making I'm not sure how but patient only has burn injury between his fingers. There are no circumferential skelton. There are no skelton crossing any joints dorsal or palmar. Blisters are relatively small. They are all intact and will be left intact. Bacitracin and bulky dressing applied. Patient to use acetaminophen or ibuprofen as needed for pain but was given hydrocodone/acetaminophen pre-pack for severe pain over the first 1 to 2 days. Discussed burn and wound care, follow-up with primary, need to return to ED if signs of infection. HPI General Mode of arrival: ambulatory. Date/Time Provider Initiated Documentation: 10/29/20 20:29. Limitations to Documentation: no limitations. Information obtained by: patient and RN notes reviewed. HPI Narrative: Patient is a right-hand dominant male who presents to the ED with left hand skelton. Patient was trying to take a radiator cap off while engine was still hot. Sustained skelton to the left hand. Did not get sprayed in the eyes or face. Denies other injury. Reports tetanus within the last 3 years. Related Data Home Medications Medication Instructions Recorded Confirmed multivitamin 1 tab PO DAILY 07/29/20 10/29/20 Allergies Allergy/AdvReac Type Severity Reaction Status Date / Time Penicillins Allergy Severe Anaphylaxsi Unverified 10/29/20 20:27 s Sulfa (Sulfonamide Allergy Intermediate Skin Rash Unverified 10/29/20 20:27 Antibiotics) General Stated Complaint: Burn COSTA: 4 Review of Systems Constitutional Constitutional: Denies fever(s) Cardiovascular Cardiovascular: Denies dyspnea Respiratory Respiratory: Denies cough and Denies dyspnea Integumentary/Breasts Skin/Breast: Reports erythema and Reports skin pain [facility] Social History Smoking/Tobacco Use Status: Former Tobacco Use Quit Date: 04/08/15 Smoking risk assessment performed?: Yes Alcohol Intake: current Alcohol Intake frequency: 0-2 drinks per day Alcohol type: beer Drug use: Never Substance use type: does not use Do you feel safe at home: Yes Do you feel safe in your relationship?: Yes Exam Const General: cooperative, healthy appearing and no acute distress Orientation: alert and oriented x3 HENMT Head: normocephalic and atraumatic Neck Neck: trachea midline and supple Resp Effort & Inspection: normal respiratory effort Skin Other: Erythema and blistering in between fingers of left hand. Palmar and dorsal aspect of hand normal. Slight erthyema with blisters dorsal left wrist. Neuro General: patient alert, patient oriented x3 and no focal motor deficits Cognition: normal cognition Speech: speech normal Gait: normal gait Sensory Exam: no sensory deficits noted Extrem Left upper extremity: wrist Details: normal ROM and normal vascular exam and hand Details: neuromotor exam normal, neurosensory exam normal and normal ROM of fingers Course Vital Signs Vital signs: Vital Signs Temperature 98.1 F 10/29/20 20:24 Pulse 94 H 10/29/20 20:24 Respiratory Rate 18 10/29/20 20:24 Blood Pressure 136/93 H 10/29/20 20:24 Pulse Oximetry 97 10/29/20 20:24 Temperature 98.1 F 10/29/20 20:24 Temperature Source Oral 10/29/20 20:24 Pulse 94 H 10/29/20 20:24 Respiratory Rate 18 10/29/20 20:24 Blood Pressure 136/93 H 10/29/20 20:24 Pulse Oximetry 97 10/29/20 20:24 Oxygen Delivery Method Room Air 10/29/20 20:24 Oxygen Flow Rate 0 10/29/20 20:24 Pain Level 7 10/29/20 20:24
== END 2020-10-29 21:00 | disposition home or self-care (01) ==
LOC: ER 20:45
PROVIDERS: Emergency Provider Emergency Medicine; PCP Internal Medicine
DX: T23.202A Burn of second degree of left hand, unspecified site, initial encounter (principal); X12.XXXA Contact with other hot fluids, initial encounter
CPT/HCPCS: 16020

== ENCOUNTER 2021-06-18 16:51 | Emergency (ER) | payer OTHER, BC, SELFPAY ==
[2021-06-18 16:56] VITALS: BP 150/75; PULSE 83; RESP 18; TEMP 36.6; O2SAT 99
[2021-06-18] MEDS: Balanced Salt Solution 15 ML BTL OP (17:05)
[2021-06-18] MEDS: Erythromycin Ophth Oint 3.5 GM TUBE OP (17:05)
[2021-06-18] MEDS: Tetracaine 0.5% 4 ML BTL OP (17:06)
[2021-06-18] MEDS: Fluorescein STRIPS 100/BOX 1 MG OP (17:06)
--- NOTE | 2021-06-18 17:10 | ED.GENADUL_ITS ---
Discharge Plan Disposition Patient Disposition: HOME Condition: Improving Discharge Details Clinical Impression: Abrasion of cornea, right Primary Care Provider: Paulie Mcclain ED Provider: Lyndon Hernández Home Meds and New Rx's Prescriptions: Continued multivitamin Tablet 1 tab PO DAILY 0RF Discharge Instructions Instructions: Corneal Abrasion (ED) Additional Instructions: Erythromycin ointment to right eye 4 times daily for the next 5 days. Cool compress to reduce comfort. Sunglasses if needed. You may use Tylenol and ibuprofen as needed for pain. Return to the emerge department for any acute concerns. Medical Decision Making 40-year-old male presents with right eye irritation after having dirt and sand in the eye yesterday. He is otherwise well-appearing. On examination with foreseen there is uptake of a punctate nasal aspect corneal abrasion outside the ask vision. No persistent foreign body seen. Negative Kristin sign. We will treat with erythromycin ointment, cool compress, NSAIDs as needed. Do not feel that this will require follow-up which I did discuss with the patient. He is stable outpatient meds. HPI General Mode of arrival: ambulatory . Date/Time Provider Initiated Documentation: 06/18/21 16:51 . Limitations to Documentation: no limitations . Information obtained by: patient . History of Present Illness 40 year old M presents to the emergency department with the chief complaint of Right eye irritation since foreign body yesterday, described as mild, and is localized to the eyes and right. Patient reports no radiation. Patient started experiencing this hour(s) and it has been constant. improves with No relieving factors improve symptom(s), No exacerbating factors reported . Patient did receive the following treatments prior to arrival, none Related Data Home Medications Medication Instructions Recorded Confirmed multivitamin 1 tab PO DAILY 07/29/20 06/18/21 Allergies Allergy/AdvReac Type Severity Reaction Status Date / Time Penicillins Allergy Severe Anaphylaxsi Unverified 06/18/21 16:58 s Sulfa (Sulfonamide Allergy Intermediate Skin Rash Unverified 06/18/21 16:58 Antibiotics) General Stated Complaint: EyeProblem COSTA: 4 Review of Systems Narrative: No other complaints, no change to vision. Patient is otherwise well. PFSH All Active Problems (Updated 06/18/21 @ 17:13 by Lyndon Hernández MD) COVID-19 (Acute) Burn of hand, left, second degree (Acute) Abrasion of cornea, right (Acute) Social History Smoking/Tobacco Use Status: Former Tobacco Use Quit Date: 04/08/15 Smoking risk assessment performed?: Yes Alcohol Intake: current Alcohol Intake frequency: 0-2 drinks per day Alcohol type: beer Drug use: Never Substance use type: does not use Do you feel safe at home: Yes Do you feel safe in your relationship?: Yes Exam Narrative Exam Narrative: GEN: awake, alert, oriented 3. Pleasant, well groomed, interactive. HEAD: Normocephalic, atraumatic ENT: Mucous membranes moist, oropharynx unremarkable, External ear exam unremarkable EYES: PERRL, EOMI, mild right conjunctival injection. There is fluorescein uptake in a punctate corneal abrasion right eye nasal aspect on the edge of the iris but outside the axis of vision. No foreign appreciated. Negative Kristin sign. NECK: Full ROM, no EDGAR, no menigismus CHEST/RESP: No respiratory distress EXT: Full ROM, normal musculature Neuro: Grossly normal neurologic exam, conversant, interactive. Psych: Speech fluent, thoughts congruent, affect normal Course Vital Signs Vital signs: Vital Signs Temperature 36.6 C 06/18/21 16:56 Pulse 83 06/18/21 16:56 Respiratory Rate 18 06/18/21 16:56 Blood Pressure 150/75 H 06/18/21 16:56 Pulse Oximetry 99 06/18/21 16:56 Temperature 36.6 C 06/18/21 16:56 Temperature Source Skin 06/18/21 16:56 Pulse 83 06/18/21 16:56 Respiratory Rate 18 06/18/21 16:56 Respiratory Effort Non-Labored 06/18/21 16:58 Blood Pressure 150/75 H 06/18/21 16:56 Blood Pressure Position Sitting 06/18/21 16:56 Pulse Oximetry 99 06/18/21 16:56 Oxygen Delivery Method Room Air 06/18/21 16:56 Oxygen Flow Rate 0 06/18/21 16:56 Pain Level 2 06/18/21 16:56
== END 2021-06-18 17:17 | disposition home or self-care (01) ==
PROVIDERS: Emergency Provider Emergency Medicine; PCP Internal Medicine
DX: S05.01XA Injury of conjunctiva and corneal abrasion without foreign body, right eye, initial encounter (principal); X58.XXXA Exposure to other specified factors, initial encounter
CPT/HCPCS: 99283

== ENCOUNTER 2021-06-19 08:21 | Emergency (ER) | payer OTHER, SELFPAY ==
[2021-06-19 08:40] VITALS: BP 147/80; PULSE 87; RESP 16; TEMP 37.2; O2SAT 98
[2021-06-19] MEDS: Tetracaine 0.5% 4 ML BTL (08:52)
[2021-06-19] MEDS: Fluorescein STRIPS 100/BOX 1 MG (08:52)
--- NOTE | 2021-06-19 08:59 | ED.GENADUL_ITS ---
Discharge Plan Disposition Patient Disposition: HOME Condition: Stable Discharge Details Clinical Impression: Foreign body of right eye Primary Care Provider: Paulie Mcclain ED Provider: Ying Andrea Home Meds and New Rx's Prescriptions: Continued multivitamin Tablet 1 tab PO DAILY 0RF Discharge Instructions Instructions: Eye Foreign Body (ED) Additional Instructions: You were noted to have a foreign body in your eye this morning. I was able to remove the top layer of the foreign body but a portion of the foreign body still appears to be embedded. Go directly to [facility] in [place] for your appointment this morning at 9:30 AM. Return immediately to the emergency department if you develop any worsening or new concerning symptoms. Referrals: [facility] [Outside] Discharge Data Discharge Physician: Ying Andrea Medical Decision Making 40yo M who sustained a foreign body injury to his R eye 2 days ago while working on a car differential seen in the ED yesterday and diagnosed with a corneal abrasion and started on erythromycin. Told to return if worse. Denies any new injury. Tetanus up-to-date. ED notes from yesterday notes that patient was noted to have a corneal abrasion on the nasal aspect of his right eye but no reported foreign bodies seen. Inspection of the eye today notes a punctate black speck noted at 3:00 on the right eye. He has conjunctival injection but no obvious chemosis or discharge. There is no additional foreign body noted with eyelid eversion. Tetracaine drops placed in right eye and an 18-gauge needle was used to attempt to remove foreign body. The surface layer of the foreign body appears to have been removed but on repeated attempts a foreign body still appears embedded. Will hold on additional fluorescein staining or slit lamp exam and have patient follow-up with [facility]. Called [facility] and they can see patient this morning at 930. Patient was advised to go directly there now. Usual and customary return precautions given prior to discharge. Medical Records Medical records reviewed: Yes I reviewed the patient's medical records. HPI General Mode of arrival: ambulatory . Date/Time Provider Initiated Documentation: 06/19/21 08:27 . Limitations to Documentation: no limitations . Information obtained by: patient . HPI Narrative: Patient is a 40-year-old male who was seen here yesterday and diagnosed with a corneal abrasion and started on erythromycin return for worsening pain. Patient states he was working on a car differential 2 days ago at work and feels he got either sand or dirt in his eye and has had pain and came here yesterday to the ED and diagnosed with a corneal abrasion but told to return if his pain became worse. Patient states the car differential is made of metal and he is unsure if he got either sand, dirt or metal in his eye. He states he has been using the erythromycin. He admits to blurry vision mainly from tearing of the eye. He denies any new injury Related Data Home Medications Medication Instructions Recorded Confirmed multivitamin 1 tab PO DAILY 07/29/20 06/19/21 Allergies Allergy/AdvReac Type Severity Reaction Status Date / Time Penicillins Allergy Severe Anaphylaxsi Unverified 06/19/21 08:43 s Sulfa (Sulfonamide Allergy Intermediate Skin Rash Unverified 06/19/21 08:43 Antibiotics) General Stated Complaint: EyeProblem COSTA: 4 Review of Systems All systems reviewed & are unremarkable except as noted in HPI and below Constitutional Constitutional: Reports as per HPI, Denies chills and Denies fever(s) Eyes Eyes: Reports blurry vision, Reports irritation and Reports eye pain ENT Ears, Nose, Mouth, and Throat: Denies dizziness, Denies sore throat and Denies throat swelling Cardiovascular Cardiovascular: Denies chest pain and Denies dyspnea Respiratory Respiratory: Denies cough and Denies dyspnea Gastrointestinal Gastrointestinal: Denies abdominal pain, Denies diarrhea and Denies vomiting Genitourinary Genitourinary: Denies hematuria and Denies dysuria Musculoskeletal Musculoskeletal: Denies back pain and Denies numbness Integumentary/Breasts Skin/Breast: Denies lesions and Denies rash Neurologic Neurologic: Denies dizziness, Denies localized weakness and Denies numbness Allergic/Immunologic Allergic/Immunologic: Denies throat swelling PFSH All Active Problems (Updated 06/19/21 @ 09:20 by Ying Andrea DO) COVID-19 (Acute) Burn of hand, left, second degree (Acute) Abrasion of cornea, right (Acute) Foreign body of right eye (Acute) Social History Smoking/Tobacco Use Status: Former Tobacco Use Quit Date: 04/08/15 Smoking risk assessment performed?: Yes Alcohol Intake: current Alcohol Intake frequency: 0-2 drinks per day Alcohol type: beer Drug use: Never Substance use type: does not use Do you feel safe at home: Yes Do you feel safe in your relationship?: Yes Exam Const General: cooperative, healthy appearing and no acute distress HENHI Head: normal to inspection Mouth: oral mucosae normal Eyes General: appearance normal, both eyes and all related structures Periorbital: periorbital findings normal Eyelids: eyelids normal Conjunctivae: conjunctival abnormality right conjunctival injection diffuse Cornea: corneas abnormal on the right foreign body other (punctate black speck noted at 3 o'clock) Pupils: PERRL EOM: EOM intact bilaterally Neck Neck: normal visual inspection Resp Effort & Inspection: normal respiratory effort and able to speak in complete sentences Cardio Rate: regular rate Skin General skin exam: no rashes or lesions noted Neuro General: patient alert, patient awake and patient oriented x3 Motor: muscle tone normal throughout Extrem General: normal to inspection and full ROM Psych Appearance: grossly normal Affect: normal affect Course Vital Signs Vital signs: Vital Signs Temperature 99.0 F 06/19/21 08:40 Pulse 87 06/19/21 08:40 Respiratory Rate 16 06/19/21 08:40 Blood Pressure 147/80 H 06/19/21 08:40 Pulse Oximetry 98 06/19/21 08:40 Temperature 99.0 F 06/19/21 08:40 Temperature Source Skin 06/19/21 08:40 Pulse 87 06/19/21 08:40 Respiratory Rate 16 06/19/21 08:40 Respiratory Effort 06/19/21 08:40 Blood Pressure 147/80 H 06/19/21 08:40 Blood Pressure Position Sitting 06/19/21 08:40 Pulse Oximetry 98 06/19/21 08:40 Oxygen Delivery Method Room Air 06/19/21 08:40 Oxygen Flow Rate 0 06/19/21 08:40 Pain Level 5 06/19/21 08:40
== END 2021-06-19 09:26 | disposition home or self-care (01) ==
PROVIDERS: Emergency Provider Physician Assistant; PCP Internal Medicine
DX: T15.01XA Foreign body in cornea, right eye, initial encounter (principal); X58.XXXA Exposure to other specified factors, initial encounter
CPT/HCPCS: 65205

== ENCOUNTER 2022-08-31 14:51 | Outpatient (REF) | payer BC, SELFPAY ==
[2022-08-31 19:33] LABS: ALT 28 U/L (16-63); AST 20 U/L (15-37); Alkaline Phosphatase 86 U/L (46-116); Anion Gap 6.1 mmol/L (3-11); BUN 11 mg/dL (7-18); CO2 30.9 mmol/L (21.0-32.0); CREATININE 0.9 mg/dL (0.70-1.30); Chloride 103 mmol/L (98-107); Estimated GFR 108.68 (mL/min/1.73m2); Glucose 104 mg/dL (74-106); LDL CHOLESTEROL 133 mg/dL (<100); Potassium 4.4 mmol/L (3.5-5.1); Sodium 140 mmol/L (136-145); Total Protein 7.9 g/dL (6.4-8.2)
== END 2022-08-31 14:52 | disposition home or self-care (01) ==
LOC: NCHCN 14:51
PROVIDERS: PCP Internal Medicine; Visit Provider Physician Assistant
DX: Z00.00 Encounter for general adult medical examination without abnormal findings (principal); E78.5 Hyperlipidemia, unspecified
CPT/HCPCS: 80053; 83721

== ENCOUNTER 2022-09-05 03:11 | Emergency (ER) | payer BC, SELFPAY ==
[2022-09-05 03:13] VITALS: BP 128/77; PULSE 78; RESP 16; TEMP 36.7; O2SAT 99
--- NOTE | 2022-09-05 03:15 | RT.EKG_ITS ---
APPROVED REPORT Exam: Resting ECG Reason for Exam: syncope Patient Location: E HR:75 bpm ECG Measurements Heart Rate 75 AXIS SD 216 P 58 QRSd 89 QRS 55 QT 360 T 58 QTc 401 Conclusion Sinus rhythm...normal P axis, V-rate 60- 99 Prolonged SD interval...SD >210, V-rate 50- 90 Physician: no stemi, minimal less than 1mm elevation in V3-V5, no depression. no inverted t waves. no brugada, no delta or epsilon wave.
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
[2022-09-05] MEDS: Normal Saline 500 ML IV (03:56)
[2022-09-05 04:00] LABS: Abs Immature Grans 0.03 10^3/uL (0.0-0.06); Absolute Basophil Count 0.07 10^3/uL (0.0-0.2); Absolute Eosinophil Count 0.14 10^3/uL (0.0-0.7); Absolute Lymphocyte Count 1.12 10^3/uL (1.2-3.4); Absolute Monocyte Count 0.55 10^3/uL (0.1-0.8); Absolute Neutrophil Count 5.98 10^3/uL (1.2-6.7); Basophils % 0.9; Eosinophils % 1.8; HCT 46.1 % (40.0-50.0); HGB 15.9 g/dL (13.5-17.5); Immature Grans % 0.4; Lymphocytes % 14.2; MCH 32.3 pg (27.0-33.0); MCHC 34.5 % (32.0-36.0); MCV 94 fL (80-95); MPV 10.4 fL (8.0-11.0); Neutrophils % 75.7; Platelet Count 232 10^3/uL (130-400); RBC 4.92 10^6/uL (4.36-5.78); RDW 11.7 % (11.8-14.1); RDW-SD 40.6 fL; WBC 7.89 10^3/uL (4.4-10.8)
[2022-09-05 04:26] LABS: ALT 24 U/L (16-63); AST 10 U/L (15-37); Albumin 3.7 g/dL (3.4-5.0); Alkaline Phosphatase 85 U/L (46-116); Anion Gap 6.7 mmol/L (3-11); BUN 14 mg/dL (7-18); Bilirubin, Total 0.5 mg/dL (0.2-1.0); CO2 26.3 mmol/L (21.0-32.0); Calcium 8.3 mg/dL (8.5-10.1); Chloride 105 mmol/L (98-107); Estimated GFR 95.77 (mL/min/1.73m2); Glucose 132 mg/dL (74-106); Potassium 3.9 mmol/L (3.5-5.1); Sodium 138 mmol/L (136-145); TSH (W/Ref FT4) 1.77 uIU/mL (0.36-3.74); Total Protein 7.4 g/dL (6.4-8.2); Troponin I < 50 ng/L (<or=60)
--- NOTE | 2022-09-05 04:35 | NUR.NOTE ---
referral faxed to [facility] cardiology to f/u in a month for syncope, diminished ejection fraction. Requisition faxed to [facility] to have echo cardiogram camryn.Nursing Note:
[2022-09-05 04:45] LABS: NT-proBNP 7 pg/mL (<300)
[2022-09-05 04:56] VITALS: BP 132/72; PULSE 72; RESP 16; O2SAT 99
== END 2022-09-05 04:57 | disposition home or self-care (01) ==
LOC: ER 04:59
PROVIDERS: Emergency Provider Student in an Organized Health Care Education/Training Program; PCP Internal Medicine
DX: S02.2XXA Fracture of nasal bones, initial encounter for closed fracture (principal); W22.8XXA Striking against or struck by other objects, initial encounter; R55 Syncope and collapse
CPT/HCPCS: 36415; 80053; 93005; 93308; 96360; 99284; 83880; 84443; 84484; 85025; 93010

== ENCOUNTER 2022-09-27 01:15 | Outpatient (CLI) | payer BC, SELFPAY ==
--- NOTE | 2022-09-27 14:30 | DI.US_ITS ---
APPROVED REPORT EXAM: Comprehensive 2D, Doppler, and color-flow Echocardiogram Patient Location: Out-Patient [employer] Manager: Johnathan Askew RDMS RVT Indications: syncope Other Information Study Quality: Adequate Conclusion Normal left ventricular wall thickness and chamber size. Ejection fraction is 65%. Wall motion is n ormal Normal right ventricular size and systolic function Both atria are normal in size There is no structural or hemodynamically significant valvular disease Estimated right ventricular systolic pressure is normal at 25 mmHg Wall motion Left Ventricle The left ventricle is normal size. The left ventricular systolic function is normal. The left ventric ular ejection fraction is within the normal range. There is normal left ventricular wall thickness. T here is normal LV segmental wall motion. There is no ventricular septal defect visualized. LVEF is 65 %. Right Ventricle The right ventricle is normal size. The right ventricular systolic function is normal. The RVSP is 25 .0 mmHg. Atria The left atrium size is normal. The right atrium size is normal. The interatrial septum is intact wit h no evidence for an atrial septal defect. Aortic Valve The aortic valve is normal in structure. Aortic valve is trileaflet. There is no aortic valvular sten osis. No aortic regurgitation is present. Mitral Valve The mitral valve is normal in structure. No evidence of mitral valve stenosis. No Mitral Regurgitatio n. Tricuspid Valve The tricuspid valve is normal in structure. There is no tricuspid valve stenosis. Trace tricuspid reg urgitation. Pulmonic Valve The pulmonary valve is normal in structure. There is no pulmonic valvular stenosis. There is no pulmo alejandra valvular regurgitation. Great Vessels The aortic root is normal in size. The ascending aorta is normal in size. Aortic arch is normal in ca liber. IVC is normal in size and collapses >50% with inspiration. Pericardium There is no pericardial effusion. 2D Dimensions IVSD d PLAX 0.64 cm M: 0.6-1.2 LV Vol A2C d MOD 92.4 mL LVPW d PLAX 0.63 cm M: 0.6 - 1.2 LV Vol A4C d MOD 104.5 mL LVID d PLAX 3.84 cm M: 4.2 - 5.8 LA vol/ BSA A4C s A-L 11.4 mL/m2 LVDs 2.35 cm M: 2.5 - 4.0 LA Area A4C s MOD 11.61 cm2 Ao Root d 3.21 cm M: 3.1 - 3.7 LV EF A4C MOD 64.7 % Ao Asc Diam d 2.74 cm M: 2.6 - 3.4 LV EF A2C MOD 63.4 % LV EF Teichholz 69.0 % LV EF Biplane MOD 63.8 % LVEF (Nelson's) 63.77 % M: 52 - 72 SV 62.79 mL LV Volume 73.65 mL M: 62 - 150 SV Index 31.14 mL/m2 LV Volume Index 36.46 mL/m2 M: 34 - 74 LV Vol Biplane MOD 98.5 mL FS 38.10 % M-Mode TAPSE 2.04 cm (M/F) >1.7 LV Diastology MV E' medial 0.160 (>0.07 m/s) E/A Ratio 0.7 LV E/e MED 3.20 (<14) MV E Vmax 0.52 (0.4-1.3 m/s) MV E' lateral 0.154 (>0.1 m/s) MV A Vmax 0.70 (0.4-1.3 m/s) LV E/e LAT 3.35 (<14) MV E/A Ratio 0.70 MV E/E' medial 3.24 MV E/E' lateral 3.37 Aortic Valve LVOT Area 4.05 cm2 AoV Area Vmax 4.18 cm2 LVOT Vmax 1.18 m/s AoV Area/ BSA (Vmax) 2.07 cm2/m2 LVOT Mean Candealrio. 0.75 m/s NICK Mean Candelario. 3.56 cm2 LVOT Peak Grad 5.6 mmHg NICK Mean Candelario. Index 1.77 cm2/m2 LVOT Mean Grad 2.6 mmHg LVOT VTI 0.210 m LVOT Diam s 2.25 cm AoV Vmax 1.14 m/s Velocity Ratio 1.04 AoV Mean Candelario. 0.85 m/s AoV Peak Grad 5.2 mmHg LVOT SV 84.84 mL AoV Mean Grad 3.1 mmHg AoV VTI 0.187 m AoV Area VTI 4.53 cm2 AoV Area/ BSA (VTI) 2.25 cm/m2 Mitral Valve MV DT 215 (160-240 msec) MV PHT 62 msec MV Area PHT 3.53 cm2 MV VTI 0.229 m MV Area VTI 3.70 (4.0-6.0 cm2) Tricuspid Valve TR Peak Grad 22.0 mmHg TR Vmax 2.35 m/s RA Pressure 3.00 mmHg RVSP (TR) 25.0 mmHg
== END 2022-09-27 01:35 ==
LOC: DI 01:15
PROVIDERS: PCP Internal Medicine; Visit Provider Student in an Organized Health Care Education/Training Program
DX: R55 Syncope and collapse (principal)
CPT/HCPCS: 93306